=== PATIENT | female | born 1990 | race African-American/Black ===

== ENCOUNTER 2023-09-06 10:53 | Emergency (ER) | payer MEDICAID ==
[~2023-09-06] VITALS: Ht 144.8 cm; Wt 51.1 kg
[2023-09-06 11:32] VITALS: BP 144/71; PULSE 87; RESP 16; TEMP 97.9; O2SAT 98
[2023-09-06] MEDS ORDERED: NAPR-746 PO (12:21)
== END 2023-09-06 12:23 | disposition home or self-care (01) ==
LOC: ER 10:53
DX: S62.340A Nondisplaced fracture of base of second metacarpal bone, right hand, initial encounter for closed fracture (principal); W26.8XXA Contact with other sharp object(s), not elsewhere classified, initial encounter; Y93.89 Activity, other specified; Y92.89 Other specified places as the place of occurrence of the external cause; Y99.8 Other external cause status
CPT/HCPCS: 29125; 73130